=== PATIENT | female | born 1955 | race Caucasian/White ===

== ENCOUNTER → 2021-12-05 | Outpatient (CLI) | payer MEDICARE, MEDICAID ==
--- NOTE | 2021-12-05 17:16 | Diagnostic Imaging Report ---
EXAMINATION: CT chest without contrast. TECHNIQUE: Multiple contiguous axial images were obtained through the chest without the use of intravenous contrast. All CT scans use one or more of the following dose optimizing techniques: automated exposure control, MA and/or KvP adjustment based on patient size and exam type or iterative reconstruction. HISTORY: Cough COMPARISON: None available. FINDINGS: There are numerous small cysts with thick bermudez throughout both lungs. There are few small solid nodules with the largest in the right lower lobe measuring 6 mm. No consolidation. No pleural effusion. No pneumothorax. There is no axillary or supraclavicular lymphadenopathy. Right lower paratracheal lymph node measures up to 1.3 cm. Heart size is normal. There are severe coronary artery calcifications. No pericardial effusion. Aorta is normal in caliber. Limited views of the upper abdomen are unremarkable. There are no suspicious osseus lesions. IMPRESSION: 1. Numerous small cysts with thick bermudez in both lungs with diffuse solid nodules. Differential includes fungal pneumonia, metastatic adenocarcinoma and Langerhans' cell histiocytosis. Dictated by: Dictated on workstation # [id number]
== END ==
LOC: RAD FS 12:52
PROVIDERS: ATTEND Nurse Practitioner Family
DX: R91.8 Other nonspecific abnormal finding of lung field (principal)
CPT/HCPCS: 71250